=== PATIENT | female | born 1990 | race Hispanic/Latino ===

== ENCOUNTER 2018-11-03 18:27 | Emergency (ER) | payer OTHER ==
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
[2018-11-03] MEDS ORDERED: TYLENOL PO ONE (19:45)
[2018-11-03 20:37] LABS: Bilirubin,Urine NEG (Negative); Blood,Urine NEG (Negative); Color,Urine Yellow (Yellow); Mucus,Urine 2+ /HPF; Protein,Urine <15 mg/dL mg/dL (Negative); Urobilinogen,Urine < 2.0 mg/dL (<2.0)
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
[2018-11-03 21:54] VITALS: BP 116/64
== END 2018-11-03 21:51 | disposition home or self-care (01) ==
LOC: ED 18:27
DX: O26.891 Other specified pregnancy related conditions, first trimester (principal); M62.830 Muscle spasm of back; M62.838 Other muscle spasm; Z3A.01 Less than 8 weeks gestation of pregnancy; V89.2XXA Person injured in unspecified motor-vehicle accident, traffic, initial encounter; Y93.89 Activity, other specified; Y92.89 Other specified places as the place of occurrence of the external cause; Y99.8 Other external cause status
CPT/HCPCS: 36415; 76817; 81001; 84702